=== PATIENT | male | born 1950 | race Caucasian/White ===

== ENCOUNTER → 2018-10-28 | Outpatient (CLI) | payer OTHER ==
[~2018-10-28] MED LIST: AMARYL4 MG PO; ASPIRIN81 M1; COLACE100 MG; FLEXERIL5 MG PO; GLYBURIDE2.5 MG PO; GLYBURIDE5 MG PO; METFORMIN500 MG PO; MOTRIN800 MG PO; MULTIPLE VITAMI1 CAP PO; NOVOLIN 701 UNIT/0.0; PRAVACHOL20 MG PO; VICODIN 5/500 505 MG PO; VICODIN HP 6601 TAB PO; ZESTORETIC 12.51 TA2 PO; [UNRECOGNIZED DRUG - OTHER] PO
[2018-10-28 10:19] LABS: BASO % 0.4 % (0.0-1.0); EOS # 0.1 10*3/uL (0.0-0.4); EOS % 0.9 % (1.0-4.0); HEMATOCRIT 52.4 % (42.0-52.0); HEMOGLOBIN 17.8 g/dl (14.0-18.0); LYMPH # 2.3 10*3/uL (1.3-4.4); LYMPH % 30.3 % (27.0-41.0); MEAN CELL VOLUME 92.3 fl (80.0-94.0); MEAN CORPUSCULAR HGB 31.3 pg (27.0-31.0); MEAN PLATELET VOLUME 10.8 fl (9.6-12.3); MONO # 0.6 10*3/uL (0.1-1.0); MONO % 8.6 % (3.0-9.0); NEUT # 4.4 10*3/uL (2.3-7.9); NEUT % 59.5 % (47.0-73.0); PLATELET COUNT AUTOMATED 174 10*3/uL (130-400); RED BLOOD COUNT 5.68 10*6/uL (4.50-5.90); RED CELL DISTRI WIDTH 13.2 % (0-14.5); WHITE BLOOD COUNT 7.4 10*3/uL (4.8-10.8)
[2018-10-28 10:25] LABS: ALBUMIN 3.3 gm/dl (3.1-4.5); ALKALINE PHOSPHATASE 102 U/L (45-117); BUN 6 mg/dl (7-24); CHLORIDE 100 mmol/L (98-107); CHOLESTEROL 148 mg/dL (<200); CREATININE 0.93 mg/dL (0.70-1.30); HDL CHOLESTEROL 28 mg/dl (40-60); LDL CHOLESTEROL 84 mg/dL (9-159); POTASSIUM 4.2 mmol/L (3.5-5.1); SGOT/AST 152 IU/L (3-35); SGPT/ALT 159 U/L (12-78); SODIUM 135 mmol/L (136-145); TOTAL PROTEIN 8.3 gm/dL (6.4-8.2); TRIGLYCERIDES 179 mg/dl (<150); VLDL CHOLESTEROL 36 mg/dL (6-40)
[2018-10-28 12:11] LABS: VITAMIN D, 25-HYDROXY 24.1 ng/mL (30-100)
== END | disposition home or self-care (01) ==
LOC: RESCLI 00:35
PROVIDERS: Internal Medicine
DX: E11.9 Type 2 diabetes mellitus without complications (principal); E55.9 Vitamin D deficiency, unspecified; F32.9 Major depressive disorder, single episode, unspecified; G62.9 Polyneuropathy, unspecified; B36.9 Superficial mycosis, unspecified; I10 Essential (primary) hypertension; Z79.899 Other long term (current) drug therapy

== ENCOUNTER → 2019-01-16 | Outpatient (CLI) | payer OTHER | END | disposition home or self-care (01) | LOC: RESCLI 03:46 | DX: K80.20 Calculus of gallbladder without cholecystitis without obstruction (principal); Z23 Encounter for immunization; E11.9 Type 2 diabetes mellitus without complications; G62.9 Polyneuropathy, unspecified; E55.9 Vitamin D deficiency, unspecified; F32.9 Major depressive disorder, single episode, unspecified; B36.9 Superficial mycosis, unspecified; J44.9 Chronic obstructive pulmonary disease, unspecified; K21.9 Gastro-esophageal reflux disease without esophagitis; R10.33 Periumbilical pain; Z90.89 Acquired absence of other organs ==

== ENCOUNTER → 2019-01-18 | Outpatient (CLI) | payer OTHER ==
[2019-01-18 11:51] LABS: BASO % 0.3 % (0.0-1.0); EOS # 0.1 10*3/uL (0.0-0.4); EOS % 1.2 % (1.0-4.0); HEMATOCRIT 49.6 % (42.0-52.0); HEMOGLOBIN 16.5 g/dl (14.0-18.0); LYMPH % 30.2 % (27.0-41.0); MEAN CELL VOLUME 92.2 fl (80.0-94.0); MEAN CORPUSCULAR HGB 30.7 pg (27.0-31.0); MEAN CORPUSCULAR HGB CONC 33.3 g/dl (33.0-37.0); MEAN PLATELET VOLUME 10.1 fl (9.6-12.3); MONO # 0.7 10*3/uL (0.1-1.0); NEUT # 3.8 10*3/uL (2.3-7.9); NEUT % 57.8 % (47.0-73.0); PLATELET COUNT AUTOMATED 152 10*3/uL (130-400); RED BLOOD COUNT 5.38 10*6/uL (4.50-5.90); RED CELL DISTRI WIDTH 13.1 % (0-14.5); WHITE BLOOD COUNT 6.5 10*3/uL (4.8-10.8)
[2019-01-18 12:22] LABS: ALBUMIN 2.9 gm/dl (3.1-4.5); BUN 8 mg/dl (7-24); CHLORIDE 104 mmol/L (98-107); POTASSIUM 4.1 mmol/L (3.5-5.1); SODIUM 137 mmol/L (136-145)
[2019-01-18 12:25] LABS: ALKALINE PHOSPHATASE 90 U/L (45-117); CREATININE 0.89 mg/dL (0.70-1.30); SGOT/AST 96 IU/L (3-35); SGPT/ALT 123 U/L (12-78); TOTAL PROTEIN 7.7 gm/dL (6.4-8.2)
== END | disposition home or self-care (01) ==
LOC: LAB 11:22
PROVIDERS: Student in an Organized Health Care Education/Training Program
DX: E11.9 Type 2 diabetes mellitus without complications (principal)

== ENCOUNTER → 2019-01-20 | Outpatient (CLI) | payer OTHER | END | disposition home or self-care (01) | LOC: RESCLI 00:33 | DX: Z12.11 Encounter for screening for malignant neoplasm of colon (principal); K80.20 Calculus of gallbladder without cholecystitis without obstruction; K21.9 Gastro-esophageal reflux disease without esophagitis; E11.9 Type 2 diabetes mellitus without complications; I10 Essential (primary) hypertension; R74.0 Nonspecific elevation of levels of transaminase and lactic acid dehydrogenase [LDH]; Z90.89 Acquired absence of other organs; Z85.038 Personal history of other malignant neoplasm of large intestine; Z88.8 Allergy status to other drugs, medicaments and biological substances ==

== ENCOUNTER → 2019-02-03 | Outpatient (CLI) | payer OTHER ==
[2019-02-03 10:53] LABS: ALKALINE PHOSPHATASE 119 U/L (45-117); BUN 7 mg/dl (7-24); CHLORIDE 100 mmol/L (98-107); CREATININE 0.96 mg/dL (0.70-1.30); POTASSIUM 4.2 mmol/L (3.5-5.1); SGOT/AST 66 IU/L (3-35); SGPT/ALT 92 U/L (12-78); SODIUM 132 mmol/L (136-145); TOTAL PROTEIN 7.8 gm/dL (6.4-8.2)
[2019-02-04 04:05] LABS: HEPATITIS B SURFACE AG Negative (Negative); HEPATITIS C VIRUS ANTIBODY <0.1 s/co (0.0-0.9)
== END | disposition home or self-care (01) ==
LOC: RESCLI 00:23
PROVIDERS: Student in an Organized Health Care Education/Training Program
DX: Z12.11 Encounter for screening for malignant neoplasm of colon (principal); K80.20 Calculus of gallbladder without cholecystitis without obstruction; K21.9 Gastro-esophageal reflux disease without esophagitis; E11.9 Type 2 diabetes mellitus without complications; N28.9 Disorder of kidney and ureter, unspecified; E55.9 Vitamin D deficiency, unspecified; F32.9 Major depressive disorder, single episode, unspecified; I10 Essential (primary) hypertension; R74.0 Nonspecific elevation of levels of transaminase and lactic acid dehydrogenase [LDH]; Z85.038 Personal history of other malignant neoplasm of large intestine; Z79.899 Other long term (current) drug therapy; Z90.89 Acquired absence of other organs

== ENCOUNTER → 2019-03-08 | Outpatient (CLI) | payer MEDICARE ==
[~2019-03-08] MED LIST changes: +METFORMIN HYDR750 MG PO; -METFORMIN500 MG PO; +SUNMARK OMEPRAZ20 MG PO; +VITAMIN D10000 UNIT PO
[2019-03-08 11:07] LABS: ALBUMIN 3.4 gm/dl (3.1-4.5); ALKALINE PHOSPHATASE 89 U/L (45-117); BUN 9 mg/dl (7-24); CHLORIDE 102 mmol/L (98-107); CREATININE 0.89 mg/dL (0.70-1.30); POTASSIUM 3.8 mmol/L (3.5-5.1); SGOT/AST 70 IU/L (3-35); SGPT/ALT 110 U/L (12-78); SODIUM 135 mmol/L (136-145); TOTAL PROTEIN 8.5 gm/dL (6.4-8.2)
== END | disposition home or self-care (01) ==
LOC: RESCLI 01:10
PROVIDERS: Student in an Organized Health Care Education/Training Program
DX: Z12.11 Encounter for screening for malignant neoplasm of colon (principal); E11.9 Type 2 diabetes mellitus without complications; K80.20 Calculus of gallbladder without cholecystitis without obstruction; K21.9 Gastro-esophageal reflux disease without esophagitis; E55.9 Vitamin D deficiency, unspecified; F32.9 Major depressive disorder, single episode, unspecified; I10 Essential (primary) hypertension; G62.9 Polyneuropathy, unspecified; R74.0 Nonspecific elevation of levels of transaminase and lactic acid dehydrogenase [LDH]; Z79.899 Other long term (current) drug therapy; Z85.038 Personal history of other malignant neoplasm of large intestine; Z88.8 Allergy status to other drugs, medicaments and biological substances

== ENCOUNTER → 2019-03-29 | Day surgery (SDC) | payer OTHER ==
[~2019-03-29] VITALS: Ht 180.3 cm; Wt 80.7 kg
[2019-03-29 09:09] VITALS: BP 131/67
[2019-03-29 09:59] VITALS: BP 107/68
[2019-03-29 10:15] VITALS: BP 114/69
[2019-03-29 10:29] VITALS: BP 112/72
== END | disposition home or self-care (01) ==
LOC: SDC 03-24 12:30
DX: Z12.11 Encounter for screening for malignant neoplasm of colon (principal); K44.9 Diaphragmatic hernia without obstruction or gangrene; K29.50 Unspecified chronic gastritis without bleeding; K21.9 Gastro-esophageal reflux disease without esophagitis; F32.9 Major depressive disorder, single episode, unspecified; E11.9 Type 2 diabetes mellitus without complications; K94.09 Other complications of colostomy; E78.00 Pure hypercholesterolemia, unspecified; J45.909 Unspecified asthma, uncomplicated; Z87.891 Personal history of nicotine dependence; Z85.038 Personal history of other malignant neoplasm of large intestine; Z83.3 Family history of diabetes mellitus

== ENCOUNTER → 2019-04-12 | Outpatient (CLI) | payer OTHER ==
[2019-04-12 11:00] LABS: ALBUMIN 3.1 gm/dl (3.1-4.5); ALKALINE PHOSPHATASE 114 U/L (45-117); BUN 9 mg/dl (7-24); CHLORIDE 99 mmol/L (98-107); CREATININE 0.83 mg/dL (0.70-1.30); POTASSIUM 3.7 mmol/L (3.5-5.1); SGOT/AST 44 IU/L (3-35); SGPT/ALT 59 U/L (12-78); SODIUM 133 mmol/L (136-145); TOTAL PROTEIN 8.1 gm/dL (6.4-8.2)
== END | disposition home or self-care (01) ==
LOC: RESCLI 00:16
PROVIDERS: Internal Medicine
DX: R74.0 Nonspecific elevation of levels of transaminase and lactic acid dehydrogenase [LDH] (principal); I10 Essential (primary) hypertension; E55.9 Vitamin D deficiency, unspecified; E11.9 Type 2 diabetes mellitus without complications; K80.20 Calculus of gallbladder without cholecystitis without obstruction; Z85.038 Personal history of other malignant neoplasm of large intestine; F32.9 Major depressive disorder, single episode, unspecified; G62.9 Polyneuropathy, unspecified; F17.210 Nicotine dependence, cigarettes, uncomplicated; Z79.84 Long term (current) use of oral hypoglycemic drugs; Z12.11 Encounter for screening for malignant neoplasm of colon; Z79.899 Other long term (current) drug therapy

== ENCOUNTER → 2020-05-15 | Outpatient (CLI) | payer MEDICARE | END | disposition home or self-care (01) | LOC: RAD 14:40 | PROVIDERS: ATTEND Nurse Practitioner Primary Care | DX: M43.17 Spondylolisthesis, lumbosacral region (principal); M51.36 Other intervertebral disc degeneration, lumbar region; M51.37 Other intervertebral disc degeneration, lumbosacral region; M48.07 Spinal stenosis, lumbosacral region ==

== ENCOUNTER → 2020-11-13 | Outpatient (CLI) | payer OTHER | END | disposition home or self-care (01) | LOC: RAD 11:01 | PROVIDERS: ATTEND Registered Nurse | DX: J44.9 Chronic obstructive pulmonary disease, unspecified (principal); R06.00 Dyspnea, unspecified; Z72.0 Tobacco use ==

== ENCOUNTER → 2020-12-04 | Outpatient (CLI) | payer OTHER ==
[~2020-12-04] MED LIST changes: +ASPIRIN ADULT L81 M2 PO; +JANUVIA100 MG PO; +METFORMIN HYDR500 MG PO; +OMEGA 3-6-9 11200 MG PO; +PAROXETINE20 MG PO; +PREDNISONE10 MG PO; +PRILOSEC20 M1 PO; +VITAMIN D210 MCG PO
== END | disposition home or self-care (01) ==
LOC: COVID19 16:02
PROVIDERS: ATTEND Internal Medicine
DX: U07.1 COVID-19 (principal)

== ENCOUNTER 2020-12-11 16:11 | Inpatient (IN) | payer OTHER ==
[~2020-12-11] VITALS: Ht 175.2 cm; Wt 68.0 kg
[~2020-12-11 16:11] MED LIST changes: -ASPIRIN ADULT L81 M2 PO; -JANUVIA100 MG PO; -METFORMIN HYDR500 MG PO; -OMEGA 3-6-9 11200 MG PO; -PAROXETINE20 MG PO; -PREDNISONE10 MG PO; -PRILOSEC20 M1 PO; -VITAMIN D210 MCG PO
[2020-12-11 16:13] VITALS: BP 144/92
[2020-12-11 17:18] LABS: BASO % 0.3 % (0.0-1.0); EOS % 0.3 % (1.0-4.0); HEMATOCRIT 52.3 % (42.0-52.0); LYMPH # 0.9 10*3/uL (1.3-4.4); LYMPH % 11.2 % (27.0-41.0); MEAN CORPUSCULAR HGB 30.1 pg (27.0-31.0); MEAN PLATELET VOLUME 11.1 fl (9.6-12.3); MONO # 0.7 10*3/uL (0.1-1.0); MONO % 8.6 % (3.0-9.0); NEUT % 78.9 % (47.0-73.0); PLATELET COUNT AUTOMATED 176 10*3/uL (130-400); RED BLOOD COUNT 6.08 10*6/uL (4.50-5.90); RED CELL DISTRI WIDTH 12.8 % (0-14.5); WHITE BLOOD COUNT 7.6 10*3/uL (4.8-10.8)
[2020-12-11 17:40] LABS: INTERNATIONAL NORM RATIO 1.3 (2.0-3.5)
[2020-12-11 17:41] LABS: ALBUMIN 2.6 gm/dl (3.1-4.5); ALKALINE PHOSPHATASE 96 U/L (45-117); BUN 25 mg/dl (7-24); CHLORIDE 93 mmol/L (98-107); CPK 44 U/L (39-308); CREATININE 1.14 mg/dL (0.70-1.30); POTASSIUM 3.6 mmol/L (3.5-5.1); SGOT/AST 48 IU/L (3-35); SGPT/ALT 39 U/L (12-78); SODIUM 128 mmol/L (136-145)
[2020-12-11 17:44] LABS: TROPONIN I < 0.015 ng/ml (<0.045)
[2020-12-11 20:19] VITALS: BP 113/61
[2020-12-11] MEDS ORDERED: ASPIRIN ADULT L81 M2 PO (20:51)
[2020-12-11] MEDS ORDERED: JANUVIA100 MG PO (20:52)
[2020-12-11] MEDS ORDERED: METFORMIN HYDR500 MG PO (20:53)
[2020-12-11] MEDS ORDERED: OMEGA 3-6-9 11200 MG PO (20:54)
[2020-12-11] MEDS ORDERED: PRILOSEC20 M1 PO (20:55)
[2020-12-11] MEDS ORDERED: PAROXETINE20 MG PO (20:56)
[2020-12-11] MEDS ORDERED: VITAMIN D210 MCG PO (20:57)
[2020-12-11 22:51] VITALS: BP 103/52
[2020-12-12] VITALS (7 sets, daily range): BP systolic 94–117; BP diastolic 52–78
[2020-12-12 06:17] LABS: BASO % 0.3 % (0.0-1.0); EOS % 0.3 % (1.0-4.0); HEMATOCRIT 46.3 % (42.0-52.0); LYMPH # 0.9 10*3/uL (1.3-4.4); LYMPH % 14.6 % (27.0-41.0); MEAN CELL VOLUME 86.9 fl (80.0-94.0); MEAN CORPUSCULAR HGB 30.2 pg (27.0-31.0); MEAN CORPUSCULAR HGB CONC 34.8 g/dl (33.0-37.0); MEAN PLATELET VOLUME 11.3 fl (9.6-12.3); MONO # 0.6 10*3/uL (0.1-1.0); MONO % 9.3 % (3.0-9.0); NEUT # 4.8 10*3/uL (2.3-7.9); NEUT % 74.7 % (47.0-73.0); PLATELET COUNT AUTOMATED 131 10*3/uL (130-400); RED BLOOD COUNT 5.33 10*6/uL (4.50-5.90); RED CELL DISTRI WIDTH 12.8 % (0-14.5); WHITE BLOOD COUNT 6.4 10*3/uL (4.8-10.8)
[2020-12-12 06:33] LABS: ALBUMIN 2.1 gm/dl (3.1-4.5); BUN 16 mg/dl (7-24); CHLORIDE 98 mmol/L (98-107); CREATININE 0.79 mg/dL (0.70-1.30); SGOT/AST 128 IU/L (3-35); SGPT/ALT 73 U/L (12-78); SODIUM 130 mmol/L (136-145); TOTAL PROTEIN 7.4 gm/dL (6.4-8.2)
[2020-12-12 06:39] LABS: ALKALINE PHOSPHATASE 116 U/L (45-117); FREE T4 1.92 ng/dl (0.76-1.46); THYROID STIM HORMONE (HS) 0.786 uIU/ml (0.358-4.75)
[2020-12-13] VITALS: BP 110/65
[2020-12-13 06:23] LABS: HEMATOCRIT 42.9 % (42.0-52.0); MEAN CELL VOLUME 86.7 fl (80.0-94.0); MEAN CORPUSCULAR HGB 30.1 pg (27.0-31.0); MEAN CORPUSCULAR HGB CONC 34.7 g/dl (33.0-37.0); MEAN PLATELET VOLUME 11.4 fl (9.6-12.3); PLATELET COUNT AUTOMATED 99 10*3/uL (130-400); RED BLOOD COUNT 4.95 10*6/uL (4.50-5.90); RED CELL DISTRI WIDTH 12.8 % (0-14.5); WHITE BLOOD COUNT 6.2 10*3/uL (4.8-10.8)
[2020-12-13 06:26] LABS: ALBUMIN 1.9 gm/dl (3.1-4.5); ALKALINE PHOSPHATASE 116 U/L (45-117); BUN 9 mg/dl (7-24); CHLORIDE 101 mmol/L (98-107); CREATININE 0.71 mg/dL (0.70-1.30); POTASSIUM 3.7 mmol/L (3.5-5.1); SGOT/AST 95 IU/L (3-35); SGPT/ALT 72 U/L (12-78); SODIUM 131 mmol/L (136-145); TOTAL PROTEIN 6.7 gm/dL (6.4-8.2)
[2020-12-13 06:30] LABS: CPK 26 U/L (39-308)
[2020-12-13 07:52] LABS: BURR CELLS FEW; PLATELET SUFFICIENCY LOW (NORMAL); POLYCHROMASIA SLIGHT; TOTAL CELLS COUNTED 100 #CELLS
[2020-12-13 08:00] VITALS: BP 100/76
[2020-12-13 12:00] VITALS: BP 117/68
[2020-12-13 16:00] VITALS: BP 101/65
[2020-12-13 20:00] VITALS: BP 115/74
[2020-12-14] VITALS: BP 108/67
[2020-12-14 06:20] LABS: BASO % 0.2 % (0.0-1.0); EOS % 0.5 % (1.0-4.0); HEMATOCRIT 37.3 % (42.0-52.0); LYMPH # 1.3 10*3/uL (1.3-4.4); LYMPH % 20.8 % (27.0-41.0); MEAN CELL VOLUME 85.4 fl (80.0-94.0); MEAN CORPUSCULAR HGB 29.7 pg (27.0-31.0); MEAN CORPUSCULAR HGB CONC 34.9 g/dl (33.0-37.0); MEAN PLATELET VOLUME 11.2 fl (9.6-12.3); MONO # 0.7 10*3/uL (0.1-1.0); MONO % 11.6 % (3.0-9.0); NEUT # 4.2 10*3/uL (2.3-7.9); NEUT % 66.6 % (47.0-73.0); PLATELET COUNT AUTOMATED 77 10*3/uL (130-400); RED BLOOD COUNT 4.37 10*6/uL (4.50-5.90); RED CELL DISTRI WIDTH 12.7 % (0-14.5); WHITE BLOOD COUNT 6.3 10*3/uL (4.8-10.8)
[2020-12-14 06:25] LABS: ALBUMIN 1.7 gm/dl (3.1-4.5); BUN 8 mg/dl (7-24); CHLORIDE 100 mmol/L (98-107); CREATININE 0.67 mg/dL (0.70-1.30); POTASSIUM 3.5 mmol/L (3.5-5.1); SGOT/AST 83 IU/L (3-35); SGPT/ALT 68 U/L (12-78); SODIUM 131 mmol/L (136-145); TOTAL PROTEIN 6.5 gm/dL (6.4-8.2)
[2020-12-14 06:27] LABS: ALKALINE PHOSPHATASE 129 U/L (45-117)
[2020-12-14 06:31] LABS: CPK 19 U/L (39-308)
[2020-12-14 08:00] VITALS: BP 109/64
[2020-12-14 12:00] VITALS: BP 110/63
[2020-12-14 16:00] VITALS: BP 121/61
[2020-12-14 20:00] VITALS: BP 121/61
[2020-12-14 23:41] VITALS: BP 121/61
[2020-12-15] VITALS: BP 108/51
[2020-12-15 07:05] LABS: HEMATOCRIT 37.1 % (42.0-52.0); MEAN CELL VOLUME 86.1 fl (80.0-94.0); MEAN CORPUSCULAR HGB 30.2 pg (27.0-31.0); MEAN PLATELET VOLUME 12.1 fl (9.6-12.3); RED BLOOD COUNT 4.31 10*6/uL (4.50-5.90); RED CELL DISTRI WIDTH 12.9 % (0-14.5)
[2020-12-15 07:10] LABS: PLATELET COUNT AUTOMATED 38 10*3/uL (130-400)
[2020-12-15 07:20] LABS: ALBUMIN 1.6 gm/dl (3.1-4.5); BUN 7 mg/dl (7-24); CHLORIDE 100 mmol/L (98-107); CREATININE 0.67 mg/dL (0.70-1.30); POTASSIUM 3.7 mmol/L (3.5-5.1); SGOT/AST 82 IU/L (3-35); SGPT/ALT 77 U/L (12-78); SODIUM 134 mmol/L (136-145); TOTAL PROTEIN 6.4 gm/dL (6.4-8.2)
[2020-12-15 07:21] LABS: ALKALINE PHOSPHATASE 152 U/L (45-117); CPK 16 U/L (39-308)
[2020-12-15 07:54] LABS: ATYPICAL LYMPHS 1 % (0-0); PLATELET SUFFICIENCY LOW (NORMAL); TOTAL CELLS COUNTED 100 #CELLS
[2020-12-15 08:00] VITALS: BP 106/63
[2020-12-15 11:16] VITALS: BP 112/68
[2020-12-15 16:00] VITALS: BP 112/68; BP 118/68
[2020-12-15 20:00] VITALS: BP 135/85
[2020-12-16] VITALS (8 sets, daily range): BP systolic 104–117; BP diastolic 50–70
[2020-12-16 06:22] LABS: ALBUMIN 1.6 gm/dl (3.1-4.5); BUN 7 mg/dl (7-24); CHLORIDE 100 mmol/L (98-107); CREATININE 0.66 mg/dL (0.70-1.30); POTASSIUM 4.3 mmol/L (3.5-5.1); SGOT/AST 83 IU/L (3-35); SGPT/ALT 83 U/L (12-78); SODIUM 135 mmol/L (136-145)
[2020-12-16 06:26] LABS: ALKALINE PHOSPHATASE 150 U/L (45-117); CPK 17 U/L (39-308); TOTAL PROTEIN 6.5 gm/dL (6.4-8.2)
[2020-12-16 06:35] LABS: HEMATOCRIT 38.5 % (42.0-52.0); MEAN CELL VOLUME 86.9 fl (80.0-94.0); MEAN CORPUSCULAR HGB 30.2 pg (27.0-31.0); MEAN CORPUSCULAR HGB CONC 34.8 g/dl (33.0-37.0); RED BLOOD COUNT 4.43 10*6/uL (4.50-5.90); RED CELL DISTRI WIDTH 13.2 % (0-14.5); WHITE BLOOD COUNT 5.1 10*3/uL (4.8-10.8)
[2020-12-16 06:40] LABS: PLATELET COUNT AUTOMATED 7 10*3/uL (130-400)
[2020-12-16 08:17] LABS: BASOPHILS 1 % (0-1); BURR CELLS FEW; PLATELET SUFFICIENCY LOW (NORMAL); TOTAL CELLS COUNTED 100 #CELLS
[2020-12-16 08:18] LABS: POLYCHROMASIA SLIGHT
[2020-12-17] VITALS (9 sets, daily range): BP systolic 102–126; BP diastolic 48–80
[2020-12-17 07:00] LABS: HEMATOCRIT 35.7 % (42.0-52.0); MEAN CELL VOLUME 88.1 fl (80.0-94.0); MEAN CORPUSCULAR HGB 30.1 pg (27.0-31.0); MEAN CORPUSCULAR HGB CONC 34.2 g/dl (33.0-37.0); MEAN PLATELET VOLUME 12.5 fl (9.6-12.3); RED BLOOD COUNT 4.05 10*6/uL (4.50-5.90); RED CELL DISTRI WIDTH 13.3 % (0-14.5); WHITE BLOOD COUNT 4.3 10*3/uL (4.8-10.8)
[2020-12-17 07:03] LABS: PLATELET COUNT AUTOMATED 11 10*3/uL (130-400)
[2020-12-17 07:34] LABS: BURR CELLS FEW; PLATELET SUFFICIENCY LOW (NORMAL); SCHISTOCYTES FEW; TOTAL CELLS COUNTED 100 #CELLS
[2020-12-17 07:35] LABS: POLYCHROMASIA SLIGHT; TARGET CELLS FEW
[2020-12-18] VITALS (22 sets, daily range): BP systolic 102–142; BP diastolic 50–77
[2020-12-18 00:36] LABS: HEMATOCRIT 36.1 % (42.0-52.0); MEAN CELL VOLUME 87.6 fl (80.0-94.0); MEAN CORPUSCULAR HGB 29.9 pg (27.0-31.0); MEAN CORPUSCULAR HGB CONC 34.1 g/dl (33.0-37.0); RED BLOOD COUNT 4.12 10*6/uL (4.50-5.90); RED CELL DISTRI WIDTH 13.2 % (0-14.5); WHITE BLOOD COUNT 4.7 10*3/uL (4.8-10.8)
[2020-12-18 00:53] LABS: PLATELET COUNT AUTOMATED 6 10*3/uL (130-400)
[2020-12-18 01:00] LABS: ATYPICAL LYMPHS 6 % (0-0); BURR CELLS FEW; PLATELET SUFFICIENCY LOW (NORMAL); TOTAL CELLS COUNTED 100 #CELLS
[2020-12-18 01:01] LABS: OVALOCYTES FEW
[2020-12-18 06:34] LABS: HEMATOCRIT 35.7 % (42.0-52.0); MEAN CELL VOLUME 89.5 fl (80.0-94.0); MEAN CORPUSCULAR HGB 30.1 pg (27.0-31.0); MEAN CORPUSCULAR HGB CONC 33.6 g/dl (33.0-37.0); RED BLOOD COUNT 3.99 10*6/uL (4.50-5.90); RED CELL DISTRI WIDTH 13.2 % (0-14.5); WHITE BLOOD COUNT 5.2 10*3/uL (4.8-10.8)
[2020-12-18 06:43] LABS: PLATELET COUNT AUTOMATED 2 10*3/uL (130-400)
[2020-12-18 07:49] LABS: ATYPICAL LYMPHS 2 % (0-0); BURR CELLS FEW; PLATELET SUFFICIENCY LOW (NORMAL); POLYCHROMASIA SLIGHT; TOTAL CELLS COUNTED 100 #CELLS
[2020-12-19] VITALS (9 sets, daily range): BP systolic 113–135; BP diastolic 40–65
[2020-12-19 03:35] LABS: HEMATOCRIT 30.9 % (42.0-52.0); MEAN CELL VOLUME 88.5 fl (80.0-94.0); MEAN CORPUSCULAR HGB 30.1 pg (27.0-31.0); MEAN PLATELET VOLUME 11.8 fl (9.6-12.3); RED BLOOD COUNT 3.49 10*6/uL (4.50-5.90); RED CELL DISTRI WIDTH 13.2 % (0-14.5); WHITE BLOOD COUNT 6.7 10*3/uL (4.8-10.8)
[2020-12-19 03:42] LABS: PLATELET COUNT AUTOMATED 26 10*3/uL (130-400)
[2020-12-19 04:01] LABS: TOTAL CELLS COUNTED 100 #CELLS
[2020-12-19 04:02] LABS: PLATELET SUFFICIENCY LOW (NORMAL)
[2020-12-20] VITALS (12 sets, daily range): BP systolic 99–125; BP diastolic 41–65
[2020-12-20 05:16] LABS: BUN 17 mg/dl (7-24); CHLORIDE 103 mmol/L (98-107); POTASSIUM 4.3 mmol/L (3.5-5.1); SODIUM 137 mmol/L (136-145)
[2020-12-20 05:23] LABS: ACT PARTIAL THROMBO TIME 24.2 SECONDS (20.0-32.1)
[2020-12-20 05:54] LABS: HEMATOCRIT 30.4 % (42.0-52.0); LYMPH # 0.8 10*3/uL (1.3-4.4); LYMPH % 8.5 % (27.0-41.0); MEAN CELL VOLUME 90.5 fl (80.0-94.0); MEAN CORPUSCULAR HGB 30.7 pg (27.0-31.0); MEAN CORPUSCULAR HGB CONC 33.9 g/dl (33.0-37.0); MEAN PLATELET VOLUME 12.2 fl (9.6-12.3); MONO # 0.4 10*3/uL (0.1-1.0); MONO % 4.4 % (3.0-9.0); NEUT # 7.6 10*3/uL (2.3-7.9); NEUT % 86.5 % (47.0-73.0); RED BLOOD COUNT 3.36 10*6/uL (4.50-5.90); RED CELL DISTRI WIDTH 13.8 % (0-14.5); WHITE BLOOD COUNT 8.8 10*3/uL (4.8-10.8)
[2020-12-20 06:26] LABS: PLATELET COUNT AUTOMATED 69 10*3/uL (130-400)
[2020-12-20] MEDS ORDERED: PREDNISONE10 MG PO (12:42)
== END 2020-12-20 14:31 | DRG 871 ==
LOC: ED 16:11 → EDHOLD 20:33 → 4E 20:33 → ICCU 20:33 → 4E 12-12 02:36 → ICCU 12-18 07:03
PROVIDERS: Emergency Medicine; Family Medicine; Internal Medicine; Internal Medicine Hematology & Oncology; Registered Nurse; Student in an Organized Health Care Education/Training Program; ADMIT Internal Medicine; ATTEND Internal Medicine
PROC: 30233R1 Transfusion of Nonautologous Platelets into Peripheral Vein, Percutaneous Approach (ICD-10-PCS; 2020-12-16)
PROC: 30233K1 Transfusion of Nonautologous Frozen Plasma into Peripheral Vein, Percutaneous Approach (ICD-10-PCS; principal; 2020-12-18)
DX: A41.9 Sepsis, unspecified organism (principal); U07.1 COVID-19; E43 Unspecified severe protein-calorie malnutrition; K94.01 Colostomy hemorrhage; E87.1 Hypo-osmolality and hyponatremia; B37.0 Candidal stomatitis; Z68.1 Body mass index [BMI] 19.9 or less, adult; E86.0 Dehydration; D75.1 Secondary polycythemia; D75.82 Heparin induced thrombocytopenia (HIT); E87.8 Other disorders of electrolyte and fluid balance, not elsewhere classified; E80.6 Other disorders of bilirubin metabolism; R74.01 Elevation of levels of liver transaminase levels; E11.65 Type 2 diabetes mellitus with hyperglycemia; D69.6 Thrombocytopenia, unspecified; Z79.01 Long term (current) use of anticoagulants; Z82.5 Family history of asthma and other chronic lower respiratory diseases; Z88.8 Allergy status to other drugs, medicaments and biological substances; Z79.82 Long term (current) use of aspirin; Z79.899 Other long term (current) drug therapy

== ENCOUNTER → 2021-01-16 | Outpatient (CLI) | payer OTHER ==
[~2021-01-16] MED LIST changes: +ASPIRIN ADULT L81 M2 PO; +JANUVIA100 MG PO; +METFORMIN HYDR500 MG PO; +OMEGA 3-6-9 11200 MG PO; +PAROXETINE20 MG PO; +PREDNISONE10 MG PO; +PRILOSEC20 M1 PO; +VITAMIN D210 MCG PO
== END | disposition home or self-care (01) ==
LOC: CARD 12-05 00:18
PROVIDERS: ATTEND Internal Medicine Cardiovascular Disease
DX: R06.02 Shortness of breath (principal); I10 Essential (primary) hypertension; R94.31 Abnormal electrocardiogram [ECG] [EKG]; E11.9 Type 2 diabetes mellitus without complications; R06.00 Dyspnea, unspecified; I20.0 Unstable angina; Z72.0 Tobacco use

== ENCOUNTER → 2021-07-14 | Outpatient (CLI) | payer OTHER | END | disposition home or self-care (01) | LOC: CT 07-08 11:00 | PROVIDERS: ATTEND Nurse Practitioner Primary Care | DX: J98.11 Atelectasis (principal); J90 Pleural effusion, not elsewhere classified; J42 Unspecified chronic bronchitis; R91.8 Other nonspecific abnormal finding of lung field; Z72.0 Tobacco use ==

== ENCOUNTER 2021-09-04 19:16 | Emergency (ER) | payer OTHER ==
[~2021-09-04] VITALS: Ht 180.3 cm; Wt 72.6 kg
[2021-09-04 20:41] VITALS: BP 90/65
[2021-09-05] MEDS ORDERED: NAPROSYN500 MG PO (02:00)
[2021-09-05] MEDS ORDERED: ORPHENADRINE C100 M1 PO (02:00)
== END 2021-09-05 02:14 | disposition home or self-care (01) ==
LOC: ED 19:16
DX: M25.551 Pain in right hip (principal); Z88.8 Allergy status to other drugs, medicaments and biological substances; Z79.899 Other long term (current) drug therapy; Z79.82 Long term (current) use of aspirin; Z87.891 Personal history of nicotine dependence; Z90.89 Acquired absence of other organs

== ENCOUNTER → 2021-09-26 | Outpatient (CLI) | payer OTHER ==
[~2021-09-26] MED LIST changes: +NAPROSYN500 MG PO; +ORPHENADRINE C100 M1 PO
== END | disposition home or self-care (01) ==
LOC: US 10:06
PROVIDERS: ATTEND Physician Assistant
DX: K80.20 Calculus of gallbladder without cholecystitis without obstruction (principal); R10.9 Unspecified abdominal pain

== ENCOUNTER → 2022-05-14 | Day surgery (SDC) | payer OTHER ==
[~2022-05-14] VITALS: Wt 70.3 kg
[~2022-05-14] MED LIST changes: +METFORMIN XR500 MG PO; +RYBELSUS14 MG PO
[2022-05-14 07:18] VITALS: BP 127/80
[2022-05-14 07:38] VITALS: BP 84/55
[2022-05-14 07:53] VITALS: BP 111/66
[2022-05-14 08:06] VITALS: BP 107/63
== END | disposition home or self-care (01) ==
LOC: SDC 05-11 09:30
PROVIDERS: ATTEND Surgery
DX: Z12.11 Encounter for screening for malignant neoplasm of colon (principal); I10 Essential (primary) hypertension; E11.9 Type 2 diabetes mellitus without complications; K21.9 Gastro-esophageal reflux disease without esophagitis; F32.A Depression, unspecified; Z85.038 Personal history of other malignant neoplasm of large intestine; E78.00 Pure hypercholesterolemia, unspecified; F17.210 Nicotine dependence, cigarettes, uncomplicated; Z79.899 Other long term (current) drug therapy

== ENCOUNTER → 2022-05-20 | Outpatient (CLI) | payer MEDICARE | END | disposition home or self-care (01) | LOC: LAB 14:24 | PROVIDERS: ATTEND Surgery | DX: Z85.038 Personal history of other malignant neoplasm of large intestine (principal) ==

== ENCOUNTER → 2022-05-22 | Outpatient (CLI) | payer OTHER | END | disposition home or self-care (01) | LOC: CT 00:17 | PROVIDERS: ATTEND Surgery | DX: K80.20 Calculus of gallbladder without cholecystitis without obstruction (principal); K76.0 Fatty (change of) liver, not elsewhere classified; J90 Pleural effusion, not elsewhere classified; J98.11 Atelectasis; N40.0 Benign prostatic hyperplasia without lower urinary tract symptoms; Z85.038 Personal history of other malignant neoplasm of large intestine ==

== ENCOUNTER → 2022-07-28 | Outpatient (CLI) | payer OTHER | END | disposition home or self-care (01) | LOC: CT 01:08 | PROVIDERS: ATTEND Physician Assistant | DX: J90 Pleural effusion, not elsewhere classified (principal); R91.1 Solitary pulmonary nodule; R91.8 Other nonspecific abnormal finding of lung field ==

== ENCOUNTER → 2023-09-06 | Outpatient (CLI) | payer MEDICARE | LOC: CT 08:35 | PROVIDERS: ATTEND Physician Assistant | DX: R91.8 Other nonspecific abnormal finding of lung field (principal); J90 Pleural effusion, not elsewhere classified; J98.11 Atelectasis; I10 Essential (primary) hypertension; E11.9 Type 2 diabetes mellitus without complications; F17.210 Nicotine dependence, cigarettes, uncomplicated ==

== ENCOUNTER 2023-11-03 22:51 | Emergency (ER) | payer MEDICARE ==
[~2023-11-03] VITALS: Ht 180.3 cm; Wt 72.6 kg
[2023-11-04] MEDS ORDERED: SODIUM CHLORIDE 0.9% 1,000 ML IV ONE (00:40)
[2023-11-04 01:02] LABS: BASO % 0.4 % (0.0-1.0); EOS % 0.4 % (1.0-4.0); HEMATOCRIT 44.1 % (42.0-52.0); LYMPH # 0.9 10*3/uL (1.3-4.4); LYMPH % 18.3 % (27.0-41.0); MEAN CELL VOLUME 89.1 fl (80.0-94.0); MEAN CORPUSCULAR HGB 29.5 pg (27.0-31.0); MEAN CORPUSCULAR HGB CONC 33.1 g/dl (33.0-37.0); MEAN PLATELET VOLUME 9.6 fl (9.6-12.3); MONO # 0.6 10*3/uL (0.1-1.0); MONO % 12.1 % (3.0-9.0); NEUT # 3.3 10*3/uL (2.3-7.9); NEUT % 68.6 % (47.0-73.0); PLATELET COUNT AUTOMATED 173 10*3/uL (130-400); RED BLOOD COUNT 4.95 10*6/uL (4.50-5.90); RED CELL DISTRI WIDTH 14.1 % (0-14.5); WHITE BLOOD COUNT 4.9 10*3/uL (4.8-10.8)
[2023-11-04 01:23] LABS: ALKALINE PHOSPHATASE 197 U/L (46-116); BUN 9 mg/dl (9-23); CHLORIDE 98 mmol/L (98-107); POTASSIUM 4.4 mmol/L (3.4-5.1); SGPT/ALT 39 U/L (5-49); TOTAL PROTEIN 7.4 gm/dL (6.0-8.0)
[2023-11-04 01:28] LABS: BILIRUBIN Negative (Negative); BLOOD Negative (Negative); CLARITY Clear (Clear); COLOR Yellow (Yellow); GLUCOSE Negative (Negative); KETONE Negative (Negative); LEUKO ESTERASE Negative (Negative); NITRITE Negative (Negative); PH 5.5 (4.5-8.0)
[2023-11-04 01:52] LABS: RBC 0-2 rbc/hpf (0-2); WBC 0-2 wbc/hpf (0-5)
[2023-11-04 07:45] VITALS: BP 115/69
[2023-11-04] MEDS ORDERED: Ondansetron4 MG PO (09:06)
[2023-11-04] MEDS ORDERED: PERCOCET 5-3251 EACH PO (09:06)
[2023-11-04] MEDS ORDERED: CIPRO500 MG PO (09:06)
== END 2023-11-04 09:10 | disposition home or self-care (01) ==
LOC: ED 22:51
PROVIDERS: Emergency Medicine
DX: K80.20 Calculus of gallbladder without cholecystitis without obstruction (principal); Z20.822 Contact with and (suspected) exposure to COVID-19; R05.9 Cough, unspecified; R09.89 Other specified symptoms and signs involving the circulatory and respiratory systems; E11.65 Type 2 diabetes mellitus with hyperglycemia; E87.1 Hypo-osmolality and hyponatremia; I10 Essential (primary) hypertension; F32.A Depression, unspecified; E78.00 Pure hypercholesterolemia, unspecified; K21.9 Gastro-esophageal reflux disease without esophagitis; F12.90 Cannabis use, unspecified, uncomplicated; Z88.8 Allergy status to other drugs, medicaments and biological substances; Z98.890 Other specified postprocedural states; Z95.5 Presence of coronary angioplasty implant and graft; Z87.891 Personal history of nicotine dependence